=== PATIENT | male | born 1960 | race Caucasian/White ===

== ENCOUNTER 2020-06-01 06:49 | Day surgery (SDC) | payer BC ==
[~2020-06-01] VITALS: Ht 167.6 cm; Wt 59.0 kg
[2020-06-01 08:28] LABS: HEMATOCRIT 43.3 % (42.0-54.0); HEMOGLOBIN 14.8 g/dL (13.5-17.5); MCH 31.6 pg (26.0-34.0); MCHC 34.2 g/dL (31.0-37.0); MCV 92.5 fL (80.0-100.0); MEAN PLATELET VOLUME 11.6 fL (7.4-10.4); RBC 4.68 10x6/uL (4.20-6.10); RDW 12.5 % (11.5-14.5); WBC 4.2 10x3/uL (4.8-10.8)
[2020-06-01 08:37] VITALS: BP 139/72; Ht 167.6 cm; Wt 59.0 kg
--- NOTE | 2020-06-01 11:06 | NUR ---
AT BEDSIDE 1115 DC TEACHING COMPLETE, PT VERBALIZES UNDERSTANDING 1132 PIV DC'D WITH CATHETER INTACT, PT GETTING DRESSED 1145 PT DC'D VIA WC ACCOMPANIED BY DANNA TO POV WITH DAUGHTER DRIVING
--- NOTE | 2020-06-02 14:19 | OP ---
PATIENT NAME: RAJESH KRUGER MEDICAL RECORD: [id number] :60 LOCATION:[facility] ADMISSION DATE: SURGEON: [place] REICH DO DATE OF OPERATION: 06/01/2020 PROCEDURE: Colonoscopy with polypectomy and APC. SCOPE: Olympus video pediatric colonoscope. MEDICATIONS: Propofol 500 mg IV per anesthesia. WITHDRAWAL TIME: 25 minutes. ESTIMATED BLOOD LOSS: Minimal. COMPLICATIONS: None. FINDINGS: Informed consent was given. The patient was made comfortable with the above medication. After reaching an adequate level of sedation by slow IV push, the patient was placed on his left side. A digital rectal examination was performed and it was normal. The endoscope was then advanced under direct visualization through the rectum to the cecum, confirmed by the presence of the appendiceal orifice and ileocecal valve. The endoscope was slowly withdrawn, and the mucosa was carefully examined. The prep quality was good. There were 3 polyps visualized on today's examination. The first was located in the ascending colon. It was a benign-appearing sessile polyp, which measured approximately 3-4 mm in diameter. It was removed using a hot snare. In the sigmoid colon, there was a benign-appearing sessile polyp, which measured approximately 3 mm in diameter. It was removed using a hot snare. An endoclip was placed over the tissue for tissue positioning at this site. In the rectum, there was a large polyp, which was seen on his prior colonoscopy in January of 2020. This polyp had sites of regrowth as well as residual polypoid tissue present. An EMR was attempted with injection of Ele[place], but the polyp would not lift due to prior polypectomy resections. After this was aborted, a hot snare was used to remove as much tissue as could be performed. Following this, APC was used to completely coagulate the site with good effect. Retroflexion was performed in the rectum with a normal appearing rectal wall being visualized. The endoscope was withdrawn from the patient. The patient tolerated the procedure well and there were no complications. IMPRESSION: Three polyps as described above, removed using a combination of hot snare and argon plasma coagulation to the rectal polyp. PLAN AND RECOMMENDATIONS: 1. Discharge home when recovery parameters are met. 2. Follow up biopsy specimen results. 3. High fiber diet. 4. Continue current medications. 5. Repeat colonoscopy within 3-6 months for further polypectomy and APC as needed. 6. If significant progress is not being made with utilization of APC, might need to consider referral to surgery. This will be reevaluated at the patient's next colonoscopy. TRANSINT:[id number] Voice Confirmation ID: [id number] DOCUMENT ID: [id number] OPERATIVE REPORT [id number] RAJESH KRUGER,[place] Carrillo DO at 1419 CC: [id number] DICTATION DATE: 06/01/20 1028 SALES ENGAGEMENT MANAGER: 06/01/20 194 [facility] 06/01/20 [facility] [address] [place] [address]
== END 2020-06-01 11:45 | disposition home or self-care (01) ==
LOC: D.OPS 06:49
PROVIDERS: Anesthesiology; ATTEND Internal Medicine Gastroenterology
DX: K63.5 Polyp of colon (principal); R19.5 Other fecal abnormalities